=== PATIENT | female | born 1955 | race Caucasian/White ===

== ENCOUNTER 2020-05-30 09:55 | Inpatient (IN) | payer BC ==
[~2020-05-30] VITALS: Ht 161.3 cm; Wt 60.3 kg
[2020-05-30 11:19] LABS: BASOPHIL % 0.7 % (0.2-1.3); PLATELET COUNT 267 x10^3mcL (179-408); RED CELL DISTRIBUTION WIDTH 12.9 % (12.3-17.7)
[2020-05-30 11:38] LABS: CALCIUM 9.4 mg/dL (8.5-10.1); CHLORIDE SERUM 106 mmol/L (98-107); CREATININE SERUM 0.8 mg/dL (0.6-1.0); GFR1 > 60 mL/min; GLUCOSE SERUM 84 mg/dL (74-106); POTASSIUM SERUM 3.8 mmol/L (3.5-5.1); SODIUM SERUM 140 mmol/L (136-145)
[2020-05-30 11:42] LABS: ALBUMIN 3.8 g/dL (3.4-5.0); ALKALINE PHOSPHATASE 75 U/L (46-116); ALT/SGPT 21 U/L (14-59); AST/SGOT 16 U/L (15-37); BILIRUBIN TOTAL 0.48 mg/dL (0.20-1.00); C REACTIVE PROTEIN 3.8 mg/dL (<=0.9); LACTIC DEHYDROGENASE (LDH) 221 U/L (100-190); LIPASE 196 IU/L (73-393); TOTAL PROTEIN, SERUM 6.9 g/dL (6.4-8.2)
[2020-05-30 11:43] LABS: CHOLESTEROL 201 mg/dL (<200); HDL CHOLESTEROL 69 mg/dL (40-60)
[2020-05-30 11:54] LABS: microscopic required? NO
[2020-05-30 13:03] LABS: urine erythrocyte NEGATIVE (NEGATIVE)
[2020-05-30 13:08] LABS: AMPHETAMINE QUAL UR NONE DETECTED (See below)
[2020-05-30 16:51] LABS: CHOLESTEROL/HDL RATIO 3.1
[2020-05-30 17:00] LABS: FREE T4 0.89 ng/dL (0.76-1.46); FREE THYROXINE INDEX 2.3 ug/dL (1.4-4.5); T4(THYROXINE) 7.2 ug/dL (4.7-13.3)
[2020-05-30 17:08] LABS: T3 TOTAL 0.92 ng/mL
[2020-05-30 17:37] VITALS: BP 128/50
[2020-05-30 17:40] VITALS: Ht 161.3 cm; Wt 60.3 kg
[2020-05-30] MEDS ORDERED: LYRICA50 M1 PO (18:14)
[2020-05-30] MEDS ORDERED: PEPCID AC20 M2 PO (18:28)
[2020-05-30 19:34] VITALS: BP 114/63
[2020-05-31 04:42] VITALS: BP 108/62
[2020-05-31 06:49] LABS: PLATELET COUNT 240 x10^3mcL (179-408)
[2020-05-31 06:59] LABS: CALCIUM 8.4 mg/dL (8.5-10.1); CARBON DIOXIDE 29.1 mmol/L (21-32); CHLORIDE SERUM 110 mmol/L (98-107); CREATININE SERUM 0.8 mg/dL (0.6-1.0); GFR1 > 60 mL/min; GLUCOSE SERUM 104 mg/dL (74-106); POTASSIUM SERUM 3.8 mmol/L (3.5-5.1); SODIUM SERUM 144 mmol/L (136-145)
[2020-05-31 08:07] LABS: rbc morphology (normal/abnorm) NORMAL (NORMAL)
[2020-05-31 08:20] VITALS: BP 99/67
[2020-05-31] MEDS ORDERED: TOR10 PO (08:44)
[2020-05-31 11:20] VITALS: BP 99/67
== END 2020-05-31 12:00 | disposition home or self-care (01) | DRG 313 ==
LOC: ED 09:55 → DU 14:05
PROVIDERS: Emergency Medicine; ADMIT Family Medicine; ATTEND Family Medicine
DX: R07.9 Chest pain, unspecified (principal); W01.0XXA Fall on same level from slipping, tripping and stumbling without subsequent striking against object, initial encounter; I10 Essential (primary) hypertension; S63.501A Unspecified sprain of right wrist, initial encounter; X58.XXXA Exposure to other specified factors, initial encounter; K21.9 Gastro-esophageal reflux disease without esophagitis; G56.00 Carpal tunnel syndrome, unspecified upper limb; Z20.822 Contact with and (suspected) exposure to COVID-19; M79.7 Fibromyalgia; F41.9 Anxiety disorder, unspecified; M85.80 Other specified disorders of bone density and structure, unspecified site; Z90.710 Acquired absence of both cervix and uterus; Z79.899 Other long term (current) drug therapy; Y93.89 Activity, other specified; Y92.89 Other specified places as the place of occurrence of the external cause; Y99.8 Other external cause status; Z79.01 Long term (current) use of anticoagulants; Z79.891 Long term (current) use of opiate analgesic
CPT/HCPCS: 36600; 83880; 84439; 85378; 87804; A4570; G0378; J1644; J1885; U0003